=== PATIENT | male | born 1960 | race Caucasian/White ===

== ENCOUNTER 2021-06-06 09:23 | Day surgery (SDC) | payer BC ==
[~2021-06-06 09:23] MED LIST: Lactated Ringers 1,000 ML IV SCH
--- NOTE | 2021-06-06 09:49 | PCM.PREANE ---
Preanesthetic Assessment - Anesthesia/Transfusion/Family Hx Anesthesia History: Prior Anesthesia Without Reaction Family History of Anesthesia Reaction: No Transfusion History: No Prior Transfusion(s) - Review of Systems General: No Symptoms Pulmonary: No Symptoms Cardiovascular: No Symptoms Gastrointestinal: No Symptoms Neurological: No Symptoms Other: Reports: None - Physical Assessment NPO Status Date: 06/06/21 NPO Status Time: 00:00 Vital Signs: Last Vital Signs Temp 96.6 F L 06/06/21 09:30 Pulse 85 06/06/21 09:30 Resp 16 06/06/21 09:30 BP 147/91 H 06/06/21 09:30 Pulse Ox 96 06/06/21 09:30 Height: 5 ft 11 in Weight: 238 lb ASA Class: 2 Mental Status: Alert & Oriented x3 Airway Class: Mallampati = 2 Dentition: Reports: Normal Dentition Thyro-Mental Finger Breadths: 3 Mouth Opening Finger Breadths: 3 ROM/Head Extension: Full Lungs: Clear to Auscultation, Normal Respiratory Effort Cardiovascular: Regular Rate, Regular Rhythm - Allergies Allergies/Adverse Reactions: Allergies Allergy/AdvReac Type Severity Reaction Status Date / Time Penicillins Allergy Cannot Verified 05/31/21 11:51 Remember - Acknowledgements Anesthesia Type Planned: General Anesthesia Pt an Appropriate Candidate for the Planned Anesthesia: Yes Alternatives and Risks of Anesthesia Discussed w Pt/Guardian: Yes Pt/Guardian Understands and Agrees with Anesthesia Plan: Yes PreAnesthesia Questionnaire HEENT History: Reports: Other (See Below) Other HEENT History: wears glasses Cardiovascular History: Reports: Hypertension Respiratory History: Reports: None Gastrointestinal History: Reports: Other (See Below) Other Gastrointestinal History: occasional heartburn Genitourinary History: Reports: None Musculoskeletal History: Reports: None Neurological History: Reports: None Psychiatric History: Reports: None Endocrine/Metabolic History: Reports: Obesity/BMI 30+ Hematologic History: Reports: None Immunologic History: Reports: None Oncologic (Cancer) History: Reports: None Dermatologic History: Reports: None - Past Surgical History Head Surgeries/Procedures: Reports: None Cardiovascular Surgical History: Reports: None Respiratory Surgical History: Reports: None GI Surgical History: Reports: Colonoscopy Male Surgical History: Reports: None Endocrine Surgical History: Reports: None Neurological Surgical History: Reports: None Musculoskeletal Surgical History: Reports: Arthroscopic Knee Other Musculoskeletal Surgeries/Procedures:: hx of right ACL repair Oncologic Surgical History: Reports: None Dermatological Surgical History: Reports: None - SUBSTANCE USE Tobacco Use Status *Q: Current Every Day Tobacco User Tobacco Use Within Last Twelve Months: Snuff/Dip Days Per Week of Alcohol Use: 7 Number of Drinks Per Day: 1 Total Drinks Per Week: 7 Recreational Drug Use History: No - HOME MEDS Home Medications: Home Meds Lisinopril/Hydrochlorothiazide [Lisinopril-Hctz 20-25 mg Tab] 1 tab PO QAM 05/31/21 [History] - CURRENT (IN HOUSE) MEDS Current Meds: Current Medications Lactated Ringer's (Ringers, Lactated) 1,000 mls @ 125 mls/hr IV ASDIRECTED [facility] Last Admin: 06/06/21 09:41 Dose: 125 mls/hr Documented by:
[2021-06-06] MEDS ORDERED: propofoL 50 ML ONE (09:59)
--- NOTE | 2021-06-06 11:13 | PCM.OPNOTE ---
- General Post-Op/Procedure Note Date of Surgery/Procedure: 06/06/21 Operative Procedure(s): Colonoscopy Findings: Diverticulosis dictation number [id number] Pre Op Diagnosis: Family history of colon cancer Post-Op Diagnosis: Diverticulosis Primary Surgeon: Raleigh Britt Pathology: none Complications: None Condition: Good
--- NOTE | 2021-06-06 11:20 | PCM48HPAN ---
Post Anesthesia Note - EVALUATION WITHIN 48HRS OF ANESTHETIC Vital Signs in Normal Range: Yes Patient Participated in Evaluation: Yes Respiratory Function Stable: Yes Airway Patent: Yes Cardiovascular Function Stable: Yes Hydration Status Stable: Yes Pain Control Satisfactory: Yes Nausea and Vomiting Control Satisfactory: Yes Mental Status Recovered: Yes Vital Signs: Last Vital Signs Temp 97.2 F 06/06/21 11:13 Pulse 71 06/06/21 11:19 Resp 14 06/06/21 11:19 BP 90/69 06/06/21 11:19 Pulse Ox 97 06/06/21 11:19
--- NOTE | 2021-06-06 11:20 | PCM.POSTAN ---
POST ANESTHESIA ASSESSMENT - MENTAL STATUS Mental Status: Alert, Oriented - VITAL SIGNS Vital Signs: Last Vital Signs Temp 97.2 F 06/06/21 11:13 Pulse 71 06/06/21 11:19 Resp 14 06/06/21 11:19 BP 90/69 06/06/21 11:19 Pulse Ox 97 06/06/21 11:19 - RESPIRATORY Respiratory Status: Respiratory Rate WNL, Airway Patent, O2 Saturation Stable - CARDIOVASCULAR CV Status: Pulse Rate WNL, Blood Pressure Stable - GASTROINTESTINAL GI Status: No Symptoms - POST OP HYDRATION Hydration Status: Adequate & Stable
[2021-06-06 11:48] VITALS: BP 131/87; PULSE 69
--- NOTE | 2021-06-06 15:24 | OR ---
SURGEON: ELI FERRER MD DATE OF PROCEDURE: 06/06/2021 PREOPERATIVE DIAGNOSIS: Family history of colon cancer. POSTOPERATIVE DIAGNOSIS: Diverticulosis. PRIMARY SURGEON: Eli Ferrer MD ANESTHESIA: With the anesthesiologist. EXTENT OF THE COLONOSCOPY: To the cecum. BOWEL PREP: Very good. LIMITATIONS: None. REASON FOR PROCEDURE: The patient is a pleasant 60-year-old gentleman. He says his last colonoscopy was 10 years ago. He says it was normal. He denies any blood in his stool. His father did have colon cancer in his early 70s. PROCEDURE IN DETAIL: Physical exam was performed. The major risks and benefits associated with the procedure were explained to the patient in detail. The patient verbalized understanding and was in agreement with the same. The patient was then connected to the appropriate monitoring devices, and IV was started. EKG, pulse oximetry, blood pressure, and capnography were monitored throughout the entire procedure. . Rectal exam was done. No rectal masses or polyps were felt. Now, a well- lubricated Olympus colonoscope was inserted into the rectum and advanced under direct visualization to the level of the cecum. Cecum was identified by both visual and anatomic landmarks. Photographs were taken of the cecal cap. Scope was then slowly withdrawn in a circular fashion looking at the color, texture, anatomy, and integrity of mucosa from the cecum to the anal canal. The patient had some very minimal liquid stool. This was suctioned and irrigated out for an excellent look at the mucosa. The patient did have some diverticulosis. Scope was retroflexed in the rectum. Scope was completely removed and the procedure was terminated. ENDOSCOPIC DIAGNOSIS: Diverticulosis. RECOMMENDATIONS: Followup colonoscopy in five years because of his family history of colon cancer. He will need one sooner if develops signs and symptoms such as change in bowel habits or blood in his stool. MOLLY / LUCERO /[id number]
== END 2021-06-06 12:10 | disposition home or self-care (01) ==
LOC: MW.SDS 09:23
PROVIDERS: ATTEND Surgery
DX: Z12.11 Encounter for screening for malignant neoplasm of colon (principal); K57.30 Diverticulosis of large intestine without perforation or abscess without bleeding; I10 Essential (primary) hypertension; E66.9 Obesity, unspecified; Z68.33 Body mass index [BMI] 33.0-33.9, adult; Z88.0 Allergy status to penicillin; Z80.0 Family history of malignant neoplasm of digestive organs
CPT/HCPCS: 45378; J2704; J7120